=== PATIENT | female | born 1970 | race Caucasian/White ===

== ENCOUNTER 2022-08-21 22:54 | Emergency (ER) | payer OTHER ==
[2022-08-21 23:24] VITALS: TEMP 97.6
[2022-08-22] MEDS ORDERED: FLUORESCEIN STRIPS 1 MG STRIP RIGHT EYE ONE (00:58)
[2022-08-22] MEDS ORDERED: DIPH,PERTUS(ACELL)TETVAC-LF 0.5 ML VIAL IM ONE (00:58)
[2022-08-22] MEDS ORDERED: TOBRAMYCIN 0.3% OPHTH DROPS 5 ML BTL RIGHT EYE STA (01:33)
--- NOTE | 2022-08-22 01:33 | ED ---
General Adult HPI - General Source: patient, RN notes reviewed Mode of arrival: ambulatory Limitations: no limitations <Naida Medina - Last Filed: 08/22/22 02:54> <Jasmina Whitfield - Last Filed: 08/25/22 07:35> - General Chief complaint: Eye Problems Stated complaint: Rt eye injury Time Seen by Provider: 08/22/22 00:57 - History of Present Illness Initial comments: This is a 52-year-old female with no significant past medical history presents the emergency department with right eye problem. Patient reports that she was working with [employer] equipment when a gardening steak poked her in the right eye. She reports worsening redness, tearing from minute the right eye. She denies any contact lens use. She denies any dizziness, lightheadedness, blurred vision, loss of vision. (Naida Medina) - Related Data Allergies Allergy/AdvReac Type Severity Reaction Status Date / Time No Known Allergies Allergy Verified 08/21/22 23:23 Review of Systems ROS Other: All systems not noted in ROS Statement are negative. <Naida Medina - Last Filed: 08/22/22 02:54> ROS Other: All systems not noted in ROS Statement are negative. <Jasmina Whitfield - Last Filed: 08/25/22 07:35> ROS Statement: Those systems with pertinent positive or pertinent negative responses have been documented in the HPI. Past Medical History Past Medical History: No Reported History History of Any Multi-Drug Resistant Organisms: None Reported Past Surgical History: No Surgical Hx Reported Past Psychological History: No Psychological Hx Reported Smoking Status: Current every day smoker Past Alcohol Use History: None Reported Past Drug Use History: Marijuana <Naida Medina - Last Filed: 08/22/22 02:54> General Exam Limitations: no limitations <Naida Medina - Last Filed: 08/22/22 02:54> - General Exam Comments Initial Comments: General: Alert, in no acute distress Head: atraumatic normocephalic. Eyes PERRL, EOMI intact, mucous membranes moist Respiratory: Lungs clear to auscultation bilaterally Cardiovascular: Heart rate regular rate and rhythm Abdominal: Soft without guarding or rebound Extremities: Normal inspection with full range of motion and normal capillary refill Neuroogic: alert and oriented 3, CN II-XII intact, able to ambulate with steady gait Skin: warm dry and intact with normal color Hernandez lamp exam reveals fluoresine uptake (Naida Medina) Course Vital Signs 08/21/22 08/22/22 23:19 01:39 Temperature 97.6 F Pulse Rate 71 66 Respiratory 20 18 Rate Blood Pressure 168/78 168/90 O2 Sat by Pulse 99 99 Oximetry Medical Decision Making <Naida Medina - Last Filed: 08/22/22 02:54> <Jasmina Whitfield - Last Filed: 08/25/22 07:35> - Medical Decision Making Was pt. sent in by a medical professional or institution ([facility], [employer], urgent care, hospital, or [facility]...) When possible be specific @ -[No] Did you speak to anyone other than the patient for history (EMS, parent, family, police, friend...)? What history was obtained from this source @ -[No] Did you review nursing and triage notes (agree or disagree)? Why? @ -[I reviewed and agree with nursing and triage notes] Were old charts reviewed (outside hosp., previous admission, EMS record, old EKG, old radiological studies, urgent care reports/EKG's, [facility] records)? Report findings @ -[No old charts were reviewed] Differential Diagnosis (chest pain, altered mental status, abdominal pain women, abdominal pain men, vaginal bleeding, weakness, fever, dyspnea, syncope, headache, dizziness, GI bleed, back pain, seizure, CVA, palpatations, mental health, musculoskeletal)? @ -[not applicable] EKG interpreted by me (3pts min.). @ -[As above] X-rays interpreted by me (1pt min.). @ -[None done] CT interpreted by me (1pt min.). @ -[None done] U/S interpreted by me (1pt. min.). @ -[None done] What testing was considered but not performed or refused? (CT, X-rays, U/S, labs)? Why? @ -[None] What meds were considered but not given or refused? Why? @ -[None] Did you discuss the management of the patient with other professionals (professionals i.e. Dr., PA, [employer], lab, RT, psych nurse, social science teacher, fabrication technician, teacher, trust officer, correctional casework specialist)? Give summary @ -[No] Was smoking cessation discussed for >3mins.? @ -[No] Was critical care preformed (if so, how long)? @ -[No] Were there social determinants of health that impacted care today? How? (Homelessness, low income, unemployed, alcoholism, drug addiction, transportatio n, low edu. Level, literacy, decrease access to med. care, correction, rehab)? @ -[No] Was there de-escalation of care discussed even if they declined (Discuss DNR or withdrawal of care, Hospice)? DNR status @ -[No] What co-morbidities impacted this encounter? (DM, HTN, Smoking, COPD, CAD, Cancer, CVA, ARF, Chemo, Hep., AIDS, mental health diagnosis, sleep apnea, morbid obesity)? @ -[None] Was patient admitted / discharged? Hospital course, mention meds given and route, prescriptions, significant lab abnormalities, going to OR and other pertinent info. @ -Discharged. This is a 52 -year-old female who presents the emergency department with a chief complaint of right eye pain. Patient had a thorough history and physical exam performed. Physical exam is consistent with corneal abrasion. I discussed in detail with the patient verbalized understanding and all questions were addressed. Patient was started on TobraDex eyedrops in the emergency department. Return precautions were discussed at length. She was updated on her tetanus vaccination Patient discharged in stable condition. Case discussed with Dr. Whitfield [facility] who agrees with plan of care Undiagnosed new problem with uncertain prognosis? @ -[No] Drug Therapy requiring intensive monitoring for toxicity (Heparin, Nitro, Insulin, Cardizem)? @ -[No] Were any procedures done? @ -[No] Diagnosis/symptom? @ Corneal Abrasion Acute, or Chronic, or Acute on Chronic? @ -Acute Uncomplicated (without systemic symptoms) or Complicated (systemic symptoms)? @ -uncomplicated Side effects of treatment? @ -[No] Exacerbation, Progression, or Severe Exacerbation? @ -[No] Poses a threat to life or bodily function? How? (Chest pain, [place], [place], pneumonia, PE, COPD, DKA, ARF, appy, cholecystitis, CVA, Diverticulitis, Homicidal, Suicidal, threat to staff... and all critical care pts) @ -low likelihood (Naida Medina) Negative Eddy sign. No signs of globe perforation (Jasmina Whitfield) Disposition Is patient prescribed a controlled substance at d/c from ED?: No Time of Disposition: 01:33 <Naida Medina - Last Filed: 08/22/22 02:54> <Jasmina Whitfield - Last Filed: 08/25/22 07:35> Clinical Impression: Corneal abrasion Disposition: HOME SELF-CARE Condition: Stable Instructions (If sedation given, give patient instructions): Corneal Abrasion (ED) Referrals: Rosana Dasilva MD [Primary Care Provider] - 1-2 days
[2022-08-22 02:06] VITALS: BP 168/90; PULSE 66; RESP 18
== END 2022-08-22 01:53 | disposition home or self-care (01) ==
LOC: EC 22:54
DX: S05.01XA Injury of conjunctiva and corneal abrasion without foreign body, right eye, initial encounter (principal); F17.200 Nicotine dependence, unspecified, uncomplicated; F12.90 Cannabis use, unspecified, uncomplicated; Z23 Encounter for immunization; W50.0XXA Accidental hit or strike by another person, initial encounter
CPT/HCPCS: 90471; 90715; 99283